=== PATIENT | male | born 1980 | race Asian ===

== ENCOUNTER 2020-09-27 15:37 | Emergency (ER) | payer OTHER ==
[~2020-09-27] VITALS: Ht 172.7 cm; Wt 75.0 kg
[2020-09-27 18:46] VITALS: BP 119/75
== END 2020-09-27 20:10 | disposition home or self-care (01) ==
LOC: EMS 15:37
DX: S80.12XA Contusion of left lower leg, initial encounter (principal); F41.9 Anxiety disorder, unspecified; F32.9 Major depressive disorder, single episode, unspecified; Z88.8 Allergy status to other drugs, medicaments and biological substances; W21.03XA Struck by baseball, initial encounter; Y93.89 Activity, other specified; Y92.89 Other specified places as the place of occurrence of the external cause; Y99.8 Other external cause status
CPT/HCPCS: 99283